=== PATIENT | female | born 1990 | race Caucasian/White ===

== ENCOUNTER 2019-10-27 10:31 | Inpatient (IN) | payer SELFPAY ==
[2019-10-27 11:20] LABS: BILIRUBIN,URINE NEGATIVE (NEGATIVE); GLUCOSE, URINE (UA) NEGATIVE (NEGATIVE); KETONES,URINE (UA) NEGATIVE (NEGATIVE); LEUKOCYTE ESTERASE, URINE SMALL (NEGATIVE); NITRITE,URINE NEGATIVE (NEGATIVE); OCCULT BLOOD,URINE MODERATE (NEGATIVE); PH,URINE 7.5 PH (5.0-7.5); PROTEIN,URINE NEGATIVE (NEGATIVE); UROBILINOGEN,URINE 0.2 (NORMAL) E.U./dL (NORMAL)
[2019-10-27 11:22] LABS: CLARITY,URINE CLEAR (CLEAR)
[2019-10-27 11:24] LABS: HCG UR QUAL NEGATIVE
[2019-10-27 11:28] LABS: BASOPHILS # (AUTO) 0.1 10^3/uL (0.0-0.1); BASOPHILS % (AUTO) 0.3 %; EOSINOPHILS # (AUTO) 0.1 10^3/uL (0.0-0.7); EOSINOPHILS % (AUTO) 0.4 %; HGB - HEMOGLOBIN 13.4 g/dL (12.0-16.0); LYMPHOCYTES % (AUTO) 4.5 %; MEAN CORPUSCULAR HEMOGLOBIN 36.8 pg (27.0-31.0); MEAN CORPUSCULAR HGB CONC 34.8 g/dL (32.0-36.0); MEAN CORPUSCULAR VOLUME 105.8 fL (81.0-99.0); MEAN PLATELET VOLUME 9.6 fL (7.9-10.8); MONOCYTES # (AUTO) 1.5 10^3/uL (0.0-1.0); MONOCYTES % (AUTO) 6.6 %; NEUTROPHILS % (AUTO) 87.5 %; PLT - PLATELET COUNT 299 10^3/uL (130-450); RED BLOOD COUNT 3.64 10^6/uL (4.20-5.40); WHITE BLOOD COUNT 22.9 x10^3/uL (4.8-10.8)
[2019-10-27 11:40] LABS: ALBUMIN 4.5 g/dL (3.2-5.5); ALBUMIN/GLOBULIN RATIO 1.3 (1.0-2.2); BILIRUBIN,TOTAL 0.5 mg/dL (0.2-1.0); CALCIUM 8.7 mg/dL (8.5-10.3); CREATININE 0.6 mg/dL (0.4-1.0); TOTAL PROTEIN 8.1 g/dL (6.7-8.2)
[2019-10-27 11:48] LABS: RBC MORPHOLOGY (MULTIPLE) 2+ ANISOCYTOSIS (NORMAL)
[2019-10-27 11:52] LABS: BACTERIA,URINE Few /HPF (None Seen); RBC,URINE 0-5 /HPF (0-5); SQUAMOUS EPITHELIAL CELL,UR RARE Squamous (<= Few)
[2019-10-27] MEDS ORDERED: KETOROLAC 30 MG/ML VIAL IVP STA (11:56)
--- NOTE | 2019-10-27 12:00 | ED Physician Documentation ---
PD HPI ABD PAIN - Stated complaint Stated Complaint: ABD PX/FEMALE - Chief complaint Chief Complaint: Abd Pain - History obtained from History obtained from: Patient - History of Present Illness Timing - onset: How many weeks ago (1) Timing - duration: Weeks (1) Timing - details: Gradual onset, Still present Quality: Sharp, Pain Location: RLQ, Suprapubic Radiation: Right flank Improved by: Laying still Worsened by: Moving, Position, Palpation Associated symptoms: No: Fever, Nausea, Vomiting, Diarrhea, Constipation, Dysuria Similar symptoms before: Diagnosis (kidney stone) Recently seen: Not recently seen - Additional information Additional information: 29-year-old female with a prior history of kidney stone has had lithotripsy done in 24 stones removed from her left side and she has now developed some pain over the past week in her lower abdomen in the suprapubic area and this became suddenly worse last night at about 2 AM. She is complaining of severe pain she has pain when she goes to move around especially if she bends at the waist. She has not had vomiting she has had a lot of stool output this morning without any change in her pain. Review of Systems Constitutional: reports: Fatigue. denies: Fever, Chills, Myalgias Eyes: denies: Decreased vision Ears: denies: Ear pain Nose: denies: Rhinorrhea / runny nose, Congestion Throat: denies: Sore throat Cardiac: denies: Chest pain / pressure, Palpitations Respiratory: denies: Dyspnea, Cough GI: reports: Abdominal Pain. denies: Nausea, Vomiting, Constipation, Diarrhea : denies: Dysuria, Frequency Skin: denies: Rash Musculoskeletal: denies: Neck pain, Back pain, Extremity pain PD PAST MEDICAL HISTORY - Past Medical History Cardiovascular: None Endocrine/Autoimmune: None : Kidney stones - Past Surgical History Past Surgical History: Yes /[employer]: section HEENT: Tonsil/Adenoidectomy - Present Medications Home Medications: Ambulatory Orders Medication Instructions Recorded Confirmed Hydrocodone/Acetaminophen 1 - 2 each PO Q6H PRN #10 tablet 12/13/15 [Hydrocodon-Acetaminophen 5-325] Ofloxacin 0.3% Ophth Drops 1 drops EACHEYE Q4H #1 bottle 12/13/15 [Ocuflox 0.3% Ophth Drops] Cephalexin [Keflex] 500 mg PO QID #24 capsule 01/21/16 Cetirizine [ZyrTEC] 10 mg PO DAILY #15 tablet 01/21/16 Hydrocodone/Acetaminophen [Candler 1 each PO Q6H PRN #20 tablet 01/21/16 5-325 Tablet] dexAMETHasone [Decadron] 4 mg PO DAILY #5 tablet 01/21/16 - Allergies Allergies/Adverse Reactions: Allergies Allergy/AdvReac Type Severity Reaction Status Date / Time No Known Drug Allergies Allergy Verified 12/13/15 05:36 - Social History Does the pt smoke?: Yes Smoking Status: Current every day smoker Does the pt drink ETOH?: No Does the pt have substance abuse?: No - Immunizations Immunizations are current?: Yes PD ED PE NORMAL - Vitals Vital signs reviewed: Yes (hypertensive ) - General General: Alert and oriented X 3, No acute distress, Well developed/nourished - HEENT HEENT: Atraumatic, PERRL, EOMI - Neck Neck: Supple, no meningeal sign, No bony TTP - Cardiac Cardiac: RRR, No murmur - Respiratory Respiratory: No respiratory distress, Clear bilaterally - Abdomen Abdomen: Soft, Other (There is RLQ pain to palpation and suprapubic pain to palpation. The pain is migratory, severe and elicited with palpation. There is garding to deep palpation. ) - Back Back: No CVA TTP, No spinal TTP - Derm Derm: Normal color, Warm and dry, No rash - Extremities Extremities: No deformity, Normal ROM s pain, No edema, No calf tenderness / cord - Neuro Neuro: Alert and oriented X 3, terrazzo helper 2-12 intact, No motor deficit, No sensory deficit, Normal speech Eye Opening: Spontaneous Motor: Obeys Commands Verbal: Oriented GCS Score: 15 - Psych Psych: Normal mood, Normal affect Results - Vitals Vitals: Vital Signs - 24 hr 10/27/19 10/27/19 10:44 16:36 Temperature 36.6 C Heart Rate 92 87 Respiratory 18 18 Rate Blood Pressure 154/83 H 136/75 H O2 Saturation 98 97 Oxygen O2 Source Room air - Labs Labs: Laboratory Tests 10/27/19 10/27/19 10/27/19 11:05 11:23 11:23 WBC 22.9 H RBC 3.64 L Hgb 13.4 Hct 38.5 MCV 105.8 H MCH 36.8 H MCHC 34.8 RDW 14.0 Plt Count 299 MPV 9.6 Neut # (Auto) 20.0 H Lymph # (Auto) 1.0 L Josephine # (Auto) 1.5 H Eos # (Auto) 0.1 Baso # (Auto) 0.1 Absolute Nucleated RBC 0.00 Nucleated RBC % 0.0 Manual Slide Review Indicated RBC Morph Micro Appear 2+ ANISOCYTOSIS Sodium 135 Potassium 3.4 L Chloride 102 Carbon Dioxide 22 Anion Gap 11.0 BUN 9 Creatinine 0.6 Estimated GFR (MDRD) 117 Glucose 121 H Calcium 8.7 Total Bilirubin 0.5 AST 19 ALT 21 Alkaline Phosphatase 86 Total Protein 8.1 Albumin 4.5 Globulin 3.6 Albumin/Globulin Ratio 1.3 Lipase 27 Urine Color YELLOW Urine Clarity CLEAR Urine pH 7.5 Ur Specific [place] 1.015 Urine Protein NEGATIVE Urine Glucose (UA) NEGATIVE Urine Ketones NEGATIVE Urine Occult Blood MODERATE H Urine Nitrite NEGATIVE Urine Bilirubin NEGATIVE Urine Urobilinogen 0.2 (NORMAL) Ur Leukocyte Esterase SMALL H Urine RBC 0-5 Urine WBC 4-5 Ur Squamous Epith Cells RARE Squamous Urine Bacteria Few Ur Microscopic Review INDICATED Urine Culture Comments INDICATED Urine HCG, Qual NEGATIVE - Rads (name of study) CT ab/pel w Radiology: Prelim report reviewed (Impression: 1. Possible solid mass right ovary, measuring up to 3.8 cm. Pelvic ultrasound assessment is recommended.2. 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 Malignant versus benign manifestations of dermoid tumor is), EMP read indepedently, See rad report (2. 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 Malignant versus benign manifestations of dermoid tumor is not established by this study. Gynecologic consultation is recommended. Dermoid tumor does have malignant potential), Other u/s pelvis Radiology: Prelim report reviewed (Impression: 1. Left adnexal mass and there is fat-containing echogenicity most suggestive of dermoid this correlates with CT appearance), EMP read indepedently, See rad report (2. Solid-appearing mass with hypervascularity within the right ovary as above. While this could represent a hemorrhagic cyst, the increased vascularity raises concern of other potential etiologies. However, given the patient's age, 6-week interval ultrasound follow-up is recommended to document r) Procedures - Bedside sono Bedside sono by EMP: With use of bedside ultrasound the right kidney is imaged there is no evidence of hydronephrosis and the kidney is sonographically nontender there is no perinephric fluid or edema noted PD MEDICAL DECISION MAKING - ED course Complexity details: reviewed old records, reviewed results, re-evaluated patient, considered differential, d/w patient, d/w family ED course: 29-year-old female with a history of multiple kidney stones has acute abdominal pain not related to her kidney stone. Her pain is severe and on CT scan there is evidence of ovarian cysts and mass bilaterally. Ultrasound of the pelvis demonstrates no blood flow to the left ovary. There is a dermoid cyst present there that has grown from 3 to 6 cm in the past 6 years.The [employer] surgeon Dr. Ramírez is consulted in the case and will come to the emergency department to evaluate the patient. She is made n.p.o. she is given a liter of saline and she is getting adequate pain control with use of intravenous Dilaudid. Dr. Ramírez finds PID on exam and removes an over due low lying IUD covered in pus. Departure - Departure Disposition: 66 [facility] DC/Xfer Clinical Impression: Dermoid cyst of left ovary, Acute PID (pelvic inflammatory disease)
[2019-10-27] MEDS ORDERED: IOVERSOL 320 100 ML VIAL IVP ONE ×2 (12:12→16:59)
--- NOTE | 2019-10-27 13:12 | CT Report ---
PROCEDURE: Abdomen/Pelvis W INDICATIONS: lower abd pain severe CONTRAST: IV CONTRAST: Optiray 320 ml: 100 PO CONTRAST: *NO PO CONTRAST TECHNIQUE: After the administration of oral and intravenous contrast, 5 mm thick sections acquired from the diap hragms to the symphysis. 5 mm thick coronal and sagittal reformats were acquired. For radiation dos e reduction, the following was used: automated exposure control, adjustment of mA and/or kV accordin g to patient size. COMPARISON: 02/15/[address] abdomen/pelvis. FINDINGS: Image quality: Excellent. ABDOMEN: Lung bases: Lung bases are clear. Heart size is normal. Solid organs: Liver and spleen are normal in size and enhancement. Gallbladder appears normal Bili nehemias system is non dilated. Pancreas enhances normally. No adrenal nodules. Kidneys demonstrate nor mal size and enhancement, without hydronephrosis. Note is made of stable appearing small multiple ca lculi involving the collecting system of the left kidney as was documented earlier on noncontrast CT scanning from February 2014. Urinary tract obstruction is not associated but several of the calculi ap pear to mildly enlarged in size. Peritoneum and bowel: Bowel loops demonstrate normal wall thickness and caliber. No free fluid or a ir. Nodes and vessels: No retroperitoneal or mesenteric adenopathy by size criteria. Aorta and inferior vena cava are normal in size. Miscellaneous: No ventral hernias. PELVIS: Genitourinary: Bladder wall thickness is normal. There is a subtle finding worrisome for solid mass lesion at the right ovary measuring up to 3.8 x 3.3 cm, seen on series 3 image 69. On the left there is a dermoid tumor at the ovary, measuring up to 5.3 x 5.2 cm containing internal liquefied fat and calcifications, and soft tissue. Ovarian torsion is not associated by current CT appearance but this would be more accurately assessed for by ultrasound. Miscellaneous: No inguinal hernias or adenopathy. Bones: No suspicious bony lesions. No vertebral body compression fractures. IMPRESSION: 1. Possible solid mass right ovary, measuring up to 3.8 cm. Pelvic ultrasound assessment is recommend ed. 2. 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 Malignant versus benign manifestation of dermoid tumor is not established by thi s study. Gynecological consultation is recommended. Dermoid tumor does have malignant potential. By t his examination no metastatic disease is found. 3. Note is made of clustered small calcifications without hydronephrosis involving the left kidney in the same pattern as was previously present in February 2014. Several of the calcifications have incre ased in size. Etiology is uncertain. Reviewed by: Tres Angelo MD on 10/27/2019 12:10 PM AKKATHLEEN Approved by: Tres Angelo MD on 10/27/2019 12:10 PM AKDT Station ID: [id number]
[2019-10-27] MEDS ORDERED: HYDROmorphone 1 MG/ML CARPUJECT IVP STA ×2 (13:57→16:10)
[2019-10-27] MEDS ORDERED: ONDANSETRON 4 MG/2 ML VIAL IVP STA (13:57)
--- NOTE | 2019-10-27 16:01 | Ultrasound Report ---
PROCEDURE: Pelvic w/Transvag+Doppler Comp INDICATIONS: ovarian mass-pain TECHNIQUE: Real-time scanning was performed of the pelvic organs, with image documentation. Additional endovagi nal scanning was necessary due to incomplete visualization of the adnexal and endometrial structures by transabdominal scanning. COMPARISON: CT abdomen pelvis 10/27/2019.. FINDINGS: Transabdominal scanning: Limited scanning through the kidneys shows no hydronephrosis. No pathologi c free abdominal or pelvic fluid. Endovaginal scanning: Uterus: Uterus is normal in size at 9.3 x 3.4 x 5.2 cm. The endometrium measures 6.6 mm in combined thickness. Intrauterine device is noted. Ovaries: The ovary measures 5.1 x 3.3 x 4.5 cm. There is a solid appearing mass with hyper vasculari ty within the right ovary measuring 14.3 x 2.8 x 3.9 cm. Prominent hypervascularity is present. The l eft ovary is obscured by fat-containing mass within the left adnexal region measuring 6.5 x 4.8 x 6.2 cm. It contains areas of fat echogenicity. IMPRESSION: 1. Left adnexal mass and there is a fat-containing echogenicity most suggestive of ethmoid. This shira elates with CT appearance. 2. Solid-appearing mass with hypervascularity within the right ovary as above. While this could repre sent a hemorrhagic cyst, the increased vascularity raises concern of other potential etiologies. Meraz radha, given patient's age, six-week interval ultrasound follow-up is recommended to document resolutio n. If masslike appearance of hypervascularity persists, further evaluation with [employer] consult and/or MR I may be indicated. Reviewed by: Lani Young MD on 10/27/2019 3:59 PM PDT Approved by: Lani Young MD on 10/27/2019 3:59 PM PDT Station ID: [id number]
[2019-10-27] MEDS ORDERED: SODIUM CHLORIDE 0.9% 1,000 ML IV STA (16:10)
[2019-10-27] MEDS ORDERED: PROMETHAZINE 25 MG/1 ML VIAL IV PRN (18:23)
--- NOTE | 2019-10-27 18:29 | CONSULTATION NOTE ---
Referring Provider Name of Referring Provider:: Good Roman MD Consult Date: 10/27/19 Chief Complaint - Chief Complaint Chief Complaint: Abdominal pain History of Present Illness - Admitted From Admitted From:: ED - History of Present Illness HPI Comment/Other: 29yo LMP three months ago presents to ED with c/o irregular vaginal bleeding for the past three months, generalized pelvic pain for several weeks, much worse since yesterday. 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 Oral surgery in remote past Meds/Allgy - Home Medications Home Medications: Ambulatory Orders Medication Instructions Recorded Confirmed No Known Home Medications 10/27/19 10/27/19 - Allergies Allergies/Adverse Reactions: Allergies Allergy/AdvReac Type Severity Reaction Status Date / Time No Known Drug Allergies Allergy Verified 12/13/15 05:36 Review of Systems - Constitutional Constitutional: reports: Chills - Cardiovascular Cariovascular: denies: Palpitations, Chest pain - Respiratory Respiratory: denies: Cough, Sputum production - Gastrointestinal Gastrointestinal: reports: Abdominal pain (As noted) - Genitourinary Genitourinary: reports: Urgency. denies: Dysuria, Flank pain - Integumentary Integumentary: denies: Rash - Neurological Neurological: denies: Headache Exam - Vital Signs Vital Signs: Vital Signs x48h Temp Pulse Resp BP Pulse Ox 10/27/19 18:00 101 H 17 123/76 98 10/27/19 16:36 87 18 136/75 H 97 10/27/19 10:44 97.9 F 92 18 154/83 H 98 - Physical Exam General Appearance: positive: Alert, Mild distress Respiratory: positive: No respiratory distress, Breath sounds nml Cardiovascular: positive: Regular rate & rhythm, No murmur Abdomen: positive: Nml bowel sounds (Moderate tenderness to palp over lower abdomen diffusely. No CVAT), Tenderness, Guarding. negative: Rebound Skin: positive: Color nml, Warm, Dry Neurologic/Psychiatric: positive: Oriented x3, Mood/affect nml Comments/Other: On pelvic exam, purulent DC noted in vagina and cervix. IUD tip visible an cervical canal, removed. Exquisite cervical motion tenderness and tenderness over uterus on bimanual exam. No obvious masses however exam limited by body habitus and pain. Conclusion/Plan - Diagnosis Diagnosis: PID/endomymetritis. Small solid mass associated w right ovary and known dermoid not likely to be the cause of her abnormal bleeding or DC and pain. More c/w diagnosis as noted. Over the course of the evaluation, pt became febrile to 38.6. Plan IV abx, blood, genital cultures, fluids, pain control. Serial exams. - Lab Results Lab results reviewed: Yes Fish Bones: 10/27/19 11:23 10/27/19 11:23 - Diagnostic Imaging Results Diagnostic Imaging Results: positive: Final report reviewed, Discussed with radiologist (Erroneous measurements reported on US of right ovary; not 14.3cm, rather 4.3. Additionally, it should not read "ethmoid" with regard to the left o vary.)
--- NOTE | 2019-10-27 18:51 | PHARMACY PROGRESS NOTE ---
- Best Possible Medication History Admit Date and Time: 10/27/19 1823 Processed by: Pharmacy Medication History completed: Yes Patient Interview: Pt interview ONLY source As the person ultimately responsible for medication therapy, providers are able to order a medication from an existing home medication list in [facility] via the "Reconcile Routine" prior to Confirmation of that medication by account support analyst. Such practice is discouraged except when the physician, in their clinical judgment, deems that a medical need exists for a medication without regard to previous use.
[2019-10-27] MEDS ORDERED: PROMETHAZINE INJ 25 MG in SODIUM CHLORIDE 0.9% 50 ML IV PRN (18:59)
[2019-10-27] MEDS: KETOROLAC 15 MG/ML VIAL IVP SCH ×2 (19:50→23:59)
[2019-10-27] MEDS: SODIUM CHLORIDE FLUSH 0.9% 10 ML SYRINGE IVP PRN (19:51)
[2019-10-27] MEDS: cefTRIAXone 2 GM in SODIUM CHLORIDE 0.9% MINIBAG 100 ML IV SCH (19:56)
[2019-10-27] MEDS: PANTOPRAZOLE 40 MG VIAL IVP SCH (20:04)
[2019-10-27] MEDS: ACETAMINOPHEN 500 MG TABLET PO PRN (20:08)
[2019-10-27] MEDS: metroNIDAZOLE 500 MG/100 ML 500 MG/100 ML BAG IV SCH (20:38)
[2019-10-27] MEDS: DOXYCYCLINE INJ 100 MG in SODIUM CHLORIDE 0.9% MINIBAG 100 ML IV SCH (21:56)
[2019-10-27 22:29] LABS: TRICHOMONAS VAGINALIS DNA NEGATIVE (NEGATIVE)
[2019-10-27] MEDS: ONDANSETRON 4 MG/2 ML VIAL IVP PRN (23:59)
[2019-10-27] MEDS: HYDROmorphone 2 MG/ML VIAL IVP PRN (23:59)
[2019-10-28] MEDS: metroNIDAZOLE 500 MG/100 ML 500 MG/100 ML BAG IV SCH ×3 (04:14→19:48)
[2019-10-28] MEDS: SODIUM CHLORIDE FLUSH 0.9% 10 ML SYRINGE IVP SCH ×4 (04:15→23:42)
[2019-10-28 06:30] LABS: BASOPHILS # (AUTO) 0.1 10^3/uL (0.0-0.1); BASOPHILS % (AUTO) 0.4 %; HGB - HEMOGLOBIN 11.6 g/dL (12.0-16.0); LYMPHOCYTES # (AUTO) 1.3 10^3/uL (1.5-3.5); LYMPHOCYTES % (AUTO) 6.2 %; MEAN CORPUSCULAR HEMOGLOBIN 36.8 pg (27.0-31.0); MEAN CORPUSCULAR HGB CONC 34.2 g/dL (32.0-36.0); MEAN CORPUSCULAR VOLUME 107.6 fL (81.0-99.0); MEAN PLATELET VOLUME 9.9 fL (7.9-10.8); MONOCYTES # (AUTO) 1.7 10^3/uL (0.0-1.0); NEUTROPHILS # (AUTO) 17.7 10^3/uL (1.5-6.6); NEUTROPHILS % (AUTO) 84.4 %; PLT - PLATELET COUNT 240 10^3/uL (130-450); RED BLOOD COUNT 3.15 10^6/uL (4.20-5.40); RED CELL DISTRIBUTION WIDTH 14.6 % (12.0-15.0)
[2019-10-28] MEDS: KETOROLAC 15 MG/ML VIAL IVP SCH ×4 (06:55→23:40)
[2019-10-28] MEDS: SODIUM CHLORIDE FLUSH 0.9% 10 ML SYRINGE IVP PRN ×2 (06:55→23:42)
[2019-10-28] MEDS: PANTOPRAZOLE 40 MG VIAL IVP SCH (06:55)
[2019-10-28 07:15] LABS: RBC MORPHOLOGY (MULTIPLE) 2+ ANISOCYTOSIS (NORMAL)
--- NOTE | 2019-10-28 07:47 | PROVIDER PROGRESS NOTE ---
Subjective - Prog Note Date Prog Note Date: 10/28/19 Prog Note Time: 07:43 - Subjective Subjective: HD #2 C/O continued abdominal pain although mostly concentrated over suprapubic area; less diffuse than on admission. No n/v. Also c/o sweats/chills overnight. Spiked temp last night, afebrile with tylenol overnight. WBC slightly decreased to 21.0 VSS afeb. Tmax 38.6 Abd tender to palp, no rebound, slight improvement laterally since last night. A/P Continues to have pain, elevated WBC and febrile last PM although some improvement as noted. GC/chlam/trich neg Blood cultures pending Continue triple abx, IV hydration, pain management Objective - Vital Signs/Intake & Output Vital Signs: Vital Signs x48h Temp Pulse Resp BP Pulse Ox 10/27/19 23:50 99.1 F 75 20 112/64 96 Intake & Output: Intake & Output 10/25/19 10/26/19 10/27/19 10/28/19 23:59 23:59 23:59 23:59 Intake Total 1300 100 Output Total 350 Balance 1300 -250 - Lab Results Fish Bones: 10/28/19 06:11 10/27/19 11:23 Other Labs: Lab Results x24hrs 10/28/19 10/27/19 10/27/19 Range/Units 06:11 17:25 11:23 WBC 21.0 H (4.8-10.8) x10^3/uL RBC 3.15 L (4.20-5.40) 10^6/uL Hgb 11.6 L (12.0-16.0) g/dL Hct 33.9 L (37.0-47.0) % MCV 107.6 H (81.0-99.0) fL MCH 36.8 H (27.0-31.0) pg MCHC 34.2 (32.0-36.0) g/dL RDW 14.6 (12.0-15.0) % Plt Count 240 (130-450) 10^3/uL MPV 9.9 (7.9-10.8) fL Neut # (Auto) 17.7 H (1.5-6.6) 10^3/uL Lymph # (Auto) 1.3 L (1.5-3.5) 10^3/uL Evans # (Auto) 1.7 H (0.0-1.0) 10^3/uL Eos # (Auto) 0.0 (0.0-0.7) 10^3/uL Baso # (Auto) 0.1 (0.0-0.1) 10^3/uL Absolute Nucleated RBC 0.00 x10^3/uL Nucleated RBC % 0.0 /100WBC Manual Slide Review Indicated RBC Morph Micro Appear 2+ ANISOCYTOSIS (NORMAL) Sodium 135 (135-145) mmol/L Potassium 3.4 L (3.5-5.0) mmol/L Chloride 102 (101-111) mmol/L Carbon Dioxide 22 (21-32) mmol/L Anion Gap 11.0 (6-13) BUN 9 (6-20) mg/dL Creatinine 0.6 (0.4-1.0) mg/dL Estimated GFR (MDRD) 117 (>89) Glucose 121 H (70-100) mg/dL Calcium 8.7 (8.5-10.3) mg/dL Total Bilirubin 0.5 (0.2-1.0) mg/dL AST 19 (10-42) IU/L ALT 21 (10-60) IU/L Alkaline Phosphatase 86 (42-121) IU/L Total Protein 8.1 (6.7-8.2) g/dL Albumin 4.5 (3.2-5.5) g/dL Globulin 3.6 (2.1-4.2) g/dL Albumin/Globulin Ratio 1.3 (1.0-2.2) Lipase 27 (22-51) U/L Urine Color Urine Clarity (CLEAR) Urine pH (5.0-7.5) PH Ur Specific [place] (1.002-1.030) Urine Protein (NEGATIVE) mg/dL Urine Glucose (UA) (NEGATIVE) mg/dL Urine Ketones (NEGATIVE) mg/dL Urine Occult Blood (NEGATIVE) Urine Nitrite (NEGATIVE) Urine Bilirubin (NEGATIVE) Urine Urobilinogen (NORMAL) E.U./dL Ur Leukocyte Esterase (NEGATIVE) Urine RBC (0-5) /HPF Urine WBC (0-5) /HPF Ur Squamous Epith Cells (<= Few) Urine Bacteria (None Seen) /HPF Ur Microscopic Review Urine Culture Comments Urine HCG, Qual Chlam trachomat DNA PCR NEGATIVE (NEGATIVE) N.gonorrhoeae DNA (PCR) NEGATIVE (NEGATIVE) T. vaginalis (PCR) NEGATIVE (NEGATIVE) 10/27/19 10/27/19 Range/Units 11:23 11:05 WBC 22.9 H (4.8-10.8) x10^3/uL RBC 3.64 L (4.20-5.40) 10^6/uL Hgb 13.4 (12.0-16.0) g/dL Hct 38.5 (37.0-47.0) % MCV 105.8 H (81.0-99.0) fL MCH 36.8 H (27.0-31.0) pg MCHC 34.8 (32.0-36.0) g/dL RDW 14.0 (12.0-15.0) % Plt Count 299 (130-450) 10^3/uL MPV 9.6 (7.9-10.8) fL Neut # (Auto) 20.0 H (1.5-6.6) 10^3/uL Lymph # (Auto) 1.0 L (1.5-3.5) 10^3/uL Evans # (Auto) 1.5 H (0.0-1.0) 10^3/uL Eos # (Auto) 0.1 (0.0-0.7) 10^3/uL Baso # (Auto) 0.1 (0.0-0.1) 10^3/uL Absolute Nucleated RBC 0.00 x10^3/uL Nucleated RBC % 0.0 /100WBC Manual Slide Review Indicated RBC Morph Micro Appear 2+ ANISOCYTOSIS (NORMAL) Sodium (135-145) mmol/L Potassium (3.5-5.0) mmol/L Chloride (101-111) mmol/L Carbon Dioxide (21-32) mmol/L Anion Gap (6-13) BUN (6-20) mg/dL Creatinine (0.4-1.0) mg/dL Estimated GFR (MDRD) (>89) Glucose (70-100) mg/dL Calcium (8.5-10.3) mg/dL Total Bilirubin (0.2-1.0) mg/dL AST (10-42) IU/L ALT (10-60) IU/L Alkaline Phosphatase (42-121) IU/L Total Protein (6.7-8.2) g/dL Albumin (3.2-5.5) g/dL Globulin (2.1-4.2) g/dL Albumin/Globulin Ratio (1.0-2.2) Lipase (22-51) U/L Urine Color YELLOW Urine Clarity CLEAR (CLEAR) Urine pH 7.5 (5.0-7.5) PH Ur Specific Martell 1.015 (1.002-1.030) Urine Protein NEGATIVE (NEGATIVE) mg/dL Urine Glucose (UA) NEGATIVE (NEGATIVE) mg/dL Urine Ketones NEGATIVE (NEGATIVE) mg/dL Urine Occult Blood MODERATE H (NEGATIVE) Urine Nitrite NEGATIVE (NEGATIVE) Urine Bilirubin NEGATIVE (NEGATIVE) Urine Urobilinogen 0.2 (NORMAL) (NORMAL) E.U./dL Ur Leukocyte Esterase SMALL H (NEGATIVE) Urine RBC 0-5 (0-5) /HPF Urine WBC 4-5 (0-5) /HPF Ur Squamous Epith Cells RARE Squamous (<= Few) Urine Bacteria Few (None Seen) /HPF Ur Microscopic Review INDICATED Urine Culture Comments INDICATED Urine HCG, Qual NEGATIVE Chlam trachomat DNA PCR (NEGATIVE) N.gonorrhoeae DNA (PCR) (NEGATIVE) T. vaginalis (PCR) (NEGATIVE)
[2019-10-28] MEDS: DOXYCYCLINE INJ 100 MG in SODIUM CHLORIDE 0.9% MINIBAG 100 ML IV SCH ×2 (08:27→21:00)
[2019-10-28] MEDS: HYDROmorphone 2 MG/ML VIAL IVP PRN ×2 (10:49→20:53)
[2019-10-28] MEDS: ONDANSETRON 4 MG/2 ML VIAL IVP PRN ×2 (10:51→20:53)
[2019-10-28] MEDS: cefTRIAXone 2 GM in SODIUM CHLORIDE 0.9% MINIBAG 100 ML IV SCH (18:40)
--- NOTE | 2019-10-28 20:10 | PROVIDER PROGRESS NOTE ---
Subjective - Prog Note Date Prog Note Date: 10/28/19 Prog Note Time: 19:15 - Subjective Subjective: Feeling much better. Pain significantly diminished. Tolerating regular diet. VSS afeb Blood culture no growth after 24hrs Abd soft, much less tender. No guarding or rebound. A/P Doing well. Continue to monitor temp. If continues afebrile and decreased WBC on CBC in AM, likely DC home on PO abx Objective - Vital Signs/Intake & Output Vital Signs: Vital Signs x48h Temp Pulse Resp BP Pulse Ox 10/28/19 16:00 99.5 F 80 18 114/67 100 10/28/19 13:20 98.8 F 72 14 132/86 H 100 Intake & Output: Intake & Output 10/25/19 10/26/19 10/27/19 10/28/19 23:59 23:59 23:59 23:59 Intake Total 1300 1150 Output Total 1050 Balance 1300 100 - Lab Results Fish Bones: 10/28/19 06:11 10/27/19 11:23 Other Labs: Lab Results x24hrs 10/28/19 10/27/19 Range/Units 06:11 17:25 WBC 21.0 H (4.8-10.8) x10^3/uL RBC 3.15 L (4.20-5.40) 10^6/uL Hgb 11.6 L (12.0-16.0) g/dL Hct 33.9 L (37.0-47.0) % MCV 107.6 H (81.0-99.0) fL MCH 36.8 H (27.0-31.0) pg MCHC 34.2 (32.0-36.0) g/dL RDW 14.6 (12.0-15.0) % Plt Count 240 (130-450) 10^3/uL MPV 9.9 (7.9-10.8) fL Neut # (Auto) 17.7 H (1.5-6.6) 10^3/uL Lymph # (Auto) 1.3 L (1.5-3.5) 10^3/uL [place] # (Auto) 1.7 H (0.0-1.0) 10^3/uL Eos # (Auto) 0.0 (0.0-0.7) 10^3/uL Baso # (Auto) 0.1 (0.0-0.1) 10^3/uL Absolute Nucleated RBC 0.00 x10^3/uL Nucleated RBC % 0.0 /100WBC Manual Slide Review Indicated RBC Morph Micro Appear 2+ ANISOCYTOSIS (NORMAL) Chlam trachomat DNA PCR NEGATIVE (NEGATIVE) N.gonorrhoeae DNA (PCR) NEGATIVE (NEGATIVE) T. vaginalis (PCR) NEGATIVE (NEGATIVE)
[2019-10-29] MEDS: ONDANSETRON 4 MG/2 ML VIAL IVP PRN (03:56)
[2019-10-29] MEDS: SODIUM CHLORIDE FLUSH 0.9% 10 ML SYRINGE IVP PRN (03:56)
[2019-10-29] MEDS: metroNIDAZOLE 500 MG/100 ML 500 MG/100 ML BAG IV SCH (03:56)
[2019-10-29 06:17] LABS: BASOPHILS # (AUTO) 0.1 10^3/uL (0.0-0.1); BASOPHILS % (AUTO) 0.3 %; EOSINOPHILS # (AUTO) 0.1 10^3/uL (0.0-0.7); EOSINOPHILS % (AUTO) 0.8 %; LYMPHOCYTES # (AUTO) 1.6 10^3/uL (1.5-3.5); LYMPHOCYTES % (AUTO) 8.8 %; MEAN CORPUSCULAR HEMOGLOBIN 36.7 pg (27.0-31.0); MEAN CORPUSCULAR HGB CONC 34.3 g/dL (32.0-36.0); MEAN PLATELET VOLUME 9.7 fL (7.9-10.8); MONOCYTES # (AUTO) 1.2 10^3/uL (0.0-1.0); MONOCYTES % (AUTO) 6.6 %; NEUTROPHILS # (AUTO) 14.6 10^3/uL (1.5-6.6); NEUTROPHILS % (AUTO) 82.8 %; PLT - PLATELET COUNT 244 10^3/uL (130-450); RED CELL DISTRIBUTION WIDTH 14.1 % (12.0-15.0); WHITE BLOOD COUNT 17.7 x10^3/uL (4.8-10.8)
[2019-10-29] MEDS: PANTOPRAZOLE 40 MG VIAL IVP SCH (06:54)
[2019-10-29] MEDS: ACETAMINOPHEN 500 MG TABLET PO PRN (06:55)
--- NOTE | 2019-10-29 06:55 | PROVIDER PROGRESS NOTE ---
Subjective - Prog Note Date Prog Note Date: 10/29/19 Prog Note Time: 06:52 - Subjective Subjective: HD #3 Much improved, pain resolved. Did not require any meds overnight. VSS afeb x36 hours Blood cultures neg WBC resolving, now down to 17.7 Abdominal exam benign, non-tender. A/P Stable. Plan DC home on antibiotics She [facility] Planning another Mirena IUD at that time. Objective - Vital Signs/Intake & Output Vital Signs: Vital Signs x48h Temp Pulse Resp BP Pulse Ox 10/29/19 00:00 98.2 F 69 20 120/77 100 Intake & Output: Intake & Output 10/26/19 10/27/19 10/28/19 10/29/19 23:59 23:59 23:59 23:59 Intake Total 1300 1850 100 Output Total 1050 Balance 1300 800 100 - Lab Results Fish Bones: 10/29/19 06:10 10/27/19 11:23 Other Labs: Lab Results x24hrs 10/29/19 10/28/19 Range/Units 06:10 06:11 WBC 17.7 H (4.8-10.8) x10^3/uL RBC 3.00 L (4.20-5.40) 10^6/uL Hgb 11.0 L (12.0-16.0) g/dL Hct 32.1 L (37.0-47.0) % MCV 107.0 H (81.0-99.0) fL MCH 36.7 H (27.0-31.0) pg MCHC 34.3 (32.0-36.0) g/dL RDW 14.1 (12.0-15.0) % Plt Count 244 (130-450) 10^3/uL MPV 9.7 (7.9-10.8) fL Neut # (Auto) 14.6 H 17.7 H (1.5-6.6) 10^3/uL Lymph # (Auto) 1.6 1.3 L (1.5-3.5) 10^3/uL [place] # (Auto) 1.2 H 1.7 H (0.0-1.0) 10^3/uL Eos # (Auto) 0.1 0.0 (0.0-0.7) 10^3/uL Baso # (Auto) 0.1 0.1 (0.0-0.1) 10^3/uL Absolute Nucleated RBC 0.00 0.00 x10^3/uL Nucleated RBC % 0.0 0.0 /100WBC RBC Morph Micro Appear 2+ ANISOCYTOSIS (NORMAL)
--- NOTE | 2019-10-29 06:57 | DISCHARGE SUMMARY ---
Discharge Summary Admit Date: 10/27/19 Discharge Date: 10/29/19 Discharging Provider: Shira Ramírez MD Code Status: Attempt Resuscitation Condition at Discharge: Good Discharge Disposition: 01 Home, Self Care - DIAGNOSES Admission Diagnoses: PID Discharge Diagnoses with Status of Each Condition: Resolving - HPI History of Present Illness: 29yo LMP three months ago presents to ED with c/o irregular vaginal bleeding for the past three months, generalized pelvic pain for several weeks, much worse since yesterday. 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 Ultraound and abdominal CT were done in the ED showing the cystic teratoma and a small, 3cm right ovarian solid mass. No free fluid. WBC was markedly elevated with left shift and on exam she was found to have pus in the cervical canal, profound cervical motion tenderness and diffuse lower abdominal tenderness especially over the uterus. The IUD was noted with the tip in the endocervical canal and was removed. She was started on IV antibiotics, ceftriaxone, doxycycline and flagyl. On HD #1 she spiked a temp to 38.6. Blood cultures were negative, her WBC decreased, and her pain resolved over the ensuing 36 hours. She remained afebrile after her initial spike. She was DC'd home on oral antibiotics and will f/u in one week. She was counseled to abstain until that visit. - ALLERGIES Allergies/Adverse Reactions: Allergies Allergy/AdvReac Type Severity Reaction Status Date / Time No Known Drug Allergies Allergy Verified 12/13/15 05:36 - MEDICATIONS Home Medications: Ambulatory Orders Medication Instructions Recorded Confirmed No Known Home Medications 10/27/19 10/27/19 - PHYSICAL EXAM AT DISCHARGE General Appearance: positive: No acute distress, Alert Respiratory: positive: No respiratory distress Abdomen: positive: Non-tender, No distention. negative: Guarding, Rebound, Mass Neurologic/Psychiatric: positive: Oriented x3, Mood/affect nml - LABS Result Diagrams: 10/29/19 06:10 10/27/19 11:23
--- NOTE | 2019-10-29 07:09 | Discharge Plan ---
Discharge Plan Problem Reviewed?: Yes Disposition: Home, Self Care Condition: Good Prescriptions: Dicloxacillin Sodium 500 mg PO TID 7 Days #21 capsule Doxycycline Hyclate 100 mg PO BID 7 Days #14 tablet. metroNIDAZOLE [Flagyl] 500 mg PO BID 7 Days #14 tablet Diet: Regular Activity Restrictions: pelvic rest Shower Restrictions: No Driving Restrictions: No No Smoking: If you smoke, Please STOP! Call for help.
[2019-10-29 07:14] VITALS: BP 125/78
== END 2019-10-29 08:45 | disposition home or self-care (01) | DRG 759 ==
LOC: ED 10:31 → MS3 18:23
PROVIDERS: ADMIT Obstetrics & Gynecology; ATTEND Obstetrics & Gynecology
PROC: 0UPD7HZ Removal of Contraceptive Device from Uterus and Cervix, Via Natural or Artificial Opening (ICD-10-PCS; principal; 2019-10-27)
DX: N73.9 Female pelvic inflammatory disease, unspecified (principal); N71.9 Inflammatory disease of uterus, unspecified; N93.9 Abnormal uterine and vaginal bleeding, unspecified; D27.0 Benign neoplasm of right ovary; Z87.442 Personal history of urinary calculi; Z97.5 Presence of (intrauterine) contraceptive device
CPT/HCPCS: 36415; 74177; 76830; 76856; 80053; 81001; 81025; 83690; 85025; 87040; 87070; 87077; 87086; 87491; 87591; 87661; 93975; 96361; 96374; 96375; 96376; 99284; 99285; A9270; J1170; Q9967; 81003; 87081

== ENCOUNTER 2019-10-31 10:17 | Emergency (ER) | payer SELFPAY ==
[2019-10-31 10:53] LABS: BILIRUBIN,URINE NEGATIVE (NEGATIVE); GLUCOSE, URINE (UA) NEGATIVE (NEGATIVE); KETONES,URINE (UA) 40 mg/dL (NEGATIVE); LEUKOCYTE ESTERASE, URINE NEGATIVE (NEGATIVE); NITRITE,URINE NEGATIVE (NEGATIVE); OCCULT BLOOD,URINE MODERATE (NEGATIVE); PH,URINE 7.5 PH (5.0-7.5); PROTEIN,URINE NEGATIVE (NEGATIVE); UROBILINOGEN,URINE 0.2 (NORMAL) E.U./dL (NORMAL)
[2019-10-31 10:54] LABS: CLARITY,URINE CLEAR (CLEAR)
[2019-10-31 10:57] LABS: HCG UR QUAL NEGATIVE
[2019-10-31 11:12] LABS: BASOPHILS # (AUTO) 0.1 10^3/uL (0.0-0.1); BASOPHILS % (AUTO) 0.5 %; EOSINOPHILS # (AUTO) 0.1 10^3/uL (0.0-0.7); EOSINOPHILS % (AUTO) 0.3 %; HGB - HEMOGLOBIN 12.5 g/dL (12.0-16.0); LYMPHOCYTES # (AUTO) 1.6 10^3/uL (1.5-3.5); MEAN CORPUSCULAR HEMOGLOBIN 36.2 pg (27.0-31.0); MEAN CORPUSCULAR HGB CONC 34.3 g/dL (32.0-36.0); MEAN CORPUSCULAR VOLUME 105.5 fL (81.0-99.0); MEAN PLATELET VOLUME 9.3 fL (7.9-10.8); MONOCYTES % (AUTO) 6.2 %; NEUTROPHILS # (AUTO) 13.6 10^3/uL (1.5-6.6); NEUTROPHILS % (AUTO) 82.3 %; PLT - PLATELET COUNT 367 10^3/uL (130-450); RED BLOOD COUNT 3.45 10^6/uL (4.20-5.40); RED CELL DISTRIBUTION WIDTH 14.3 % (12.0-15.0); WHITE BLOOD COUNT 16.5 x10^3/uL (4.8-10.8)
[2019-10-31 11:20] LABS: BACTERIA,URINE Rare /HPF (None Seen); RBC,URINE 0-5 /HPF (0-5); SQUAMOUS EPITHELIAL CELL,UR FEW Squamous (<= Few)
--- NOTE | 2019-10-31 11:23 | ED Physician Documentation ---
PD HPI FEMALE - Stated complaint Stated Complaint: PELVIC PX - Chief complaint Chief Complaint: Abd Pain - History obtained from History obtained from: Patient - History of Present Illness Timing - onset: Yesterday Timing - duration: Days (2) Timing - details: Gradual onset, Still present Associated symptoms: Fever (yesterday to 100.9) Contributing factors: IUD (had IUD until 4 days ago, when Dx with PID and had IUD removed and in hospital 2 days with IV abx. Improving symptoms and discharged with FLagyl, Doxy, Diclox antibiotics. No antiemetics. She states she started with nausea/ vomiting/ diarrhea the following day after discharge. Still with RLQ pain.). No: Similar symptoms before: Diagnosis Recently seen: Emergency Dept, Admitted (4 days ago for PID, with Cx showing Group B strep and some other mixed organisms on gram stain.). No: Surgery Review of Systems Constitutional: reports: Fever, Fatigue. denies: Myalgias, Weight Loss Nose: denies: Rhinorrhea / runny nose, Congestion Throat: denies: Sore throat Cardiac: denies: Chest pain / pressure Respiratory: denies: Cough GI: reports: Abdominal Pain, Nausea, Vomiting, Diarrhea. denies: Constipation, Bloody / black stool : denies: Dysuria, Vaginal bleeding Skin: denies: Rash Neurologic: reports: Generalized weakness. 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 10/29/19 10/31/19 metroNIDAZOLE [Flagyl] 500 mg PO BID 7 Days #14 tablet 10/29/19 10/31/19 Azithromycin [Zithromax] 1,000 mg PO ONCE #4 tab 10/31/19 Hydrocodone/Acetaminophen [[place] 1 each PO Q6H PRN #15 tablet 10/31/19 5-325 Tablet] Ondansetron Odt [Zofran] 4 mg TL Q6H PRN #10 tablet 10/31/19 Saccharomyces Boulardii [Florastor] 250 mg PO BID #20 capsule 10/31/19 - Allergies Allergies/Adverse Reactions: Allergies Allergy/AdvReac Type Severity Reaction Status Date / Time No Known Drug Allergies Allergy Verified 10/31/19 10:34 - Social History Does the pt smoke?: Yes Smoking Status: Current every day smoker Does the pt drink ETOH?: No Does the pt have substance abuse?: No - Immunizations Immunizations are current?: Yes PD ED PE NORMAL - Vitals Vital signs reviewed: Yes - General General: Alert and oriented X 3, No acute distress, Well developed/nourished - HEENT HEENT: Pharynx benign. No: Moist mucous membranes - Neck Neck: Supple, no meningeal sign, No adenopathy - Cardiac Cardiac: RRR, No murmur - Respiratory Respiratory: Clear bilaterally - Abdomen Abdomen: Normal bowel sounds, Soft, Non distended, No organomegaly, Other (tender right low abd without percussion nor rebound tenderness. ) - Female Female : Deferred Results - Vitals Vitals: Vital Signs - 24 hr 10/31/19 10/31/19 10/31/19 10:25 12:46 14:00 Temperature 37.0 C 37.5 C Heart Rate 94 81 81 Respiratory 20 18 18 Rate Blood Pressure 142/96 H 120/78 112/71 O2 Saturation 97 100 99 Oxygen O2 Source Room air - Labs Labs: Laboratory Tests 10/31/19 10/31/19 10/31/19 10:40 11:04 11:04 WBC 16.5 H RBC 3.45 L Hgb 12.5 Hct 36.4 L MCV 105.5 H MCH 36.2 H MCHC 34.3 RDW 14.3 Plt Count 367 MPV 9.3 Neut # (Auto) 13.6 H Lymph # (Auto) 1.6 [place] # (Auto) 1.0 Eos # (Auto) 0.1 Baso # (Auto) 0.1 Absolute Nucleated RBC 0.00 Nucleated RBC % 0.0 Sodium 139 Potassium 3.4 L Chloride 100 L Carbon Dioxide 25 Anion Gap 14.0 H BUN 7 Creatinine 0.7 Estimated GFR (MDRD) 98 Glucose 94 Calcium 9.0 Total Bilirubin 0.4 AST 17 ALT 17 Alkaline Phosphatase 79 Total Protein 7.6 Albumin 3.8 Globulin 3.8 Albumin/Globulin Ratio 1.0 Lipase 24 Urine Color LIGHT YELLOW Urine Clarity CLEAR Urine pH 7.5 Ur Specific [place] 1.010 Urine Protein NEGATIVE Urine Glucose (UA) NEGATIVE Urine Ketones 40 H Urine Occult Blood MODERATE H Urine Nitrite NEGATIVE Urine Bilirubin NEGATIVE Urine Urobilinogen 0.2 (NORMAL) Ur Leukocyte Esterase NEGATIVE Urine RBC 0-5 Urine WBC 0-3 Ur Squamous Epith Cells FEW Squamous Urine Bacteria Rare Ur Microscopic Review INDICATED Urine Culture Comments NOT INDICATED Urine HCG, Qual NEGATIVE PD MEDICAL DECISION MAKING - ED course Complexity details: reviewed old records, reviewed results, re-evaluated patient (she is feeling better with IV fluids and meds here. ), considered differential, d/w patient, d/w market intelligence consultant (s/w Dr. Reed, reviewed recent admission, labs, culture, and current symptoms. She recommended change abx (stop oral and give IV here, with repeat Zithromax 1 g in 5 days) with emphasis on the Group B strep on Culture. N/V/D likely abx related. ) Departure - Departure Disposition: 01 Home, Self Care Clinical Impression: Nausea vomiting and diarrhea, Pelvic pain, Acute PID (pelvic inflammatory disease) Condition: Stable Record reviewed to determine appropriate education?: Yes Follow-Up: Talia Reed MD [Provider Admit Priv/Credential] - Prescriptions: Saccharomyces Boulardii [Florastor] 250 mg PO BID #20 capsule Hydrocodone/Acetaminophen [[place] 5-325 Tablet] 1 each PO Q6H PRN #15 tablet PRN Reason: Pain Azithromycin [Zithromax] 1,000 mg PO ONCE #4 tab Ondansetron Odt [Zofran] 4 mg TL Q6H PRN #10 tablet PRN Reason: Nausea / Vomiting Comments: I talked with the on-call gynecology today, Dr. Reed. Her recommendation is to discontinue the metronidazole, doxycycline, dicloxacillin. Add ondansetron if needed for nausea. Probiotics to help decrease the diarrhea and intestinal irritation from the antibiotics. Tylenol or pain medicine if needed for pains. You were given IV doses of antibiotics here in the ER and the piece maker recommendation is to take an oral dose of antibiotics again in 5 days, the azithromycin. Recheck if not improving well over the next 2 or 3 days return sooner persisting pain, vomiting, fevers despite the above medicines. Discharge Date/Time: 10/31/19 14:41
[2019-10-31 11:25] LABS: ALBUMIN 3.8 g/dL (3.2-5.5); BILIRUBIN,TOTAL 0.4 mg/dL (0.2-1.0); CREATININE 0.7 mg/dL (0.4-1.0); TOTAL PROTEIN 7.6 g/dL (6.7-8.2)
[2019-10-31] MEDS ORDERED: ONDANSETRON 4 MG/2 ML VIAL IVP STA (11:54)
[2019-10-31] MEDS ORDERED: HYDROmorphone 1 MG/ML CARPUJECT IVP STA ×2 (11:54→13:21)
[2019-10-31] MEDS ORDERED: cefTRIAXone 1 GM VIAL IVP STA (11:54)
[2019-10-31] MEDS ORDERED: SODIUM CHLORIDE 0.9% 1,000 ML IV STA (11:54)
[2019-10-31] MEDS ORDERED: AZITHROMYCIN INJ 500 MG in SODIUM CHLORIDE 0.9% 250 ML IV STA (12:53)
[2019-10-31] MEDS ORDERED: KETOROLAC 30 MG/ML VIAL IVP STA (13:21)
[2019-10-31 14:17] VITALS: BP 112/71
== END 2019-10-31 14:41 | disposition home or self-care (01) ==
LOC: ED 10:17
DX: N73.0 Acute parametritis and pelvic cellulitis (principal); B95.1 Streptococcus, group B, as the cause of diseases classified elsewhere; R11.2 Nausea with vomiting, unspecified; R19.7 Diarrhea, unspecified; F17.200 Nicotine dependence, unspecified, uncomplicated
CPT/HCPCS: 36415; 80053; 81001; 81025; 83690; 85025; 96361; 96365; 96375; 96376; 99284; 99285; J1170; 81003; 87086; 87661; 87801